=== PATIENT | female | born 1950 | race Caucasian/White ===

== ENCOUNTER 2018-05-21 07:10 | Day surgery (SDC) | payer MEDICARE, BC ==
[2018-05-21] MEDS ORDERED: PROPOFOL 500 MG/50 ML EMU IV ONE (07:28)
[2018-05-21 08:57] VITALS: BP 145/83; PULSE 64; RESP 20; TEMP 96.7; O2SAT 99
== END 2018-05-21 09:45 | disposition home or self-care (01) | DRG 951 ==
LOC: SURG 07:10
PROVIDERS: ATTEND Surgery
DX: Z12.11 Encounter for screening for malignant neoplasm of colon (principal); R19.7 Diarrhea, unspecified
CPT/HCPCS: J2704

== ENCOUNTER 2018-09-22 08:42 | Day surgery (SDC) | payer MEDICARE, BC ==
[~2018-09-22 08:42] MED LIST: FENTANYL 100MCG/2ML SOL ONE; MIDAZOLAM 2 MG/2 ML SOL ONE; PROPOFOL 500 MG/50 ML EMU IV ONE
[2018-09-22] MEDS ORDERED: BUPIVACAINE/EPI 0.5% 10 ML SOL INFIL ONE (09:44)
[2018-09-22 11:01] VITALS: BP 121/74; PULSE 61; RESP 20; TEMP 97.6; O2SAT 100
== END 2018-09-22 11:30 | disposition home or self-care (01) | DRG 607 ==
LOC: SURG 08:42
PROVIDERS: ATTEND Surgery
DX: L72.0 Epidermal cyst (principal)
CPT/HCPCS: J2250; J3010; A6402; J2704